=== PATIENT | female | born 1945 | race Caucasian/White ===

== ENCOUNTER 2018-05-18 08:22 | Observation (INO) | payer MEDICARE, OTHER ==
[~2018-05-18] VITALS: Ht 157.5 cm; Wt 188.6 kg
[~2018-05-18 08:22] MED LIST: ALBU8.5H5 INH; ASPI-496 PO; BENFOTIAMINE PO; CARV25TA12 PO; CHOL200052 PO; DULO60CA7 PO; INSU100C5 INJ; INSU100C5 SQ-INSULIN; INSU100V5 INJ; INSU100V5 SQ-INSULIN; LEVO50TA PO; LEVO750T26 PO; LISI-170 PO; PRED20TA PO; SIMV80TA PO; TORS5TAB4 PO
[2018-05-18] MEDS ORDERED: LAMO100T PO (09:18)
[2018-05-18] MEDS ORDERED: AMLO-150 PO (09:18)
[2018-05-18] MEDS ORDERED: PRAS10TA4 PO (09:18)
[2018-05-18] MEDS ORDERED: METO50TA82 PO (09:18)
[2018-05-18] MEDS ORDERED: OXYcodone/APAP 5/325MG TABLET PO ONE (10:00)
[2018-05-18] MEDS ORDERED: OXYcodone/APAP 5/325MG TABLET ONE (10:01)
[2018-05-18 10:27] LABS: MICROSCOPIC NOT IND
[2018-05-18 10:33] LABS: CULTURE INDICATED? NO
[2018-05-18 10:40] LABS: BASOPHILS # (AUTO) 0.13 x10^3/uL (0-0.1); BASOPHILS % (AUTO) 1 % (0-1); EOSINOPHILS # (AUTO) 0.32 x10^3/uL (0-0.4); EOSINOPHILS % (AUTO) 3 % (1-7); LYMPHOCYTES # (AUTO) 2.01 x10^3/uL (1-3.4); LYMPHOCYTES % (AUTO) 19 % (22-44); MD NO; MEAN CORPUSCULAR HEMOGLOBIN 29.8 pg (27.0-34.8); MEAN CORPUSCULAR HGB CONC 32.4 g/dL (32.4-35.8); MEAN CORPUSCULAR VOLUME 92.1 fL (80-100); MEAN PLATELET VOLUME 7.5 fL (7.4-10.4); MONOCYTES # (AUTO) 0.66 x10^3/uL (0.2-0.8); MONOCYTES % (AUTO) 6 % (2-9); NEUTROPHILS # (AUTO) 7.32 x10^3/uL (1.8-6.8); NEUTROPHILS % (AUTO) 70 % (42-75); PLATELET COUNT 288 x10^3/uL (130-400); RED BLOOD COUNT 4.54 x10^6/uL (3.82-5.3); RED CELL DISTRIBUTION WIDTH 15.7 % (9.6-15.2)
[2018-05-18 10:43] LABS: ALBUMIN 2.7 g/dL (3.4-5.0); ANION GAP 6 mmol/L (5-15); CALCIUM 8.2 mg/dL (8.5-10.1); CHLORIDE 107 mmol/L (98-107)
[2018-05-18 10:48] LABS: ALANINE AMINOTRANSFERASE 18 U/L (12-78); ALKALINE PHOSPHATASE 149 U/L (45-117); BILIRUBIN,TOTAL 0.7 mg/dL (0.2-1.0); CREATININE 1.37 mg/dL (0.55-1.02)
[2018-05-18] MEDS ORDERED: SODIUM CHLORIDE FLUSH 10ML SYR IVF PRN (13:00)
[2018-05-18] MEDS ORDERED: TEMAZEPAM 15 MG CAPSULE PO PRN (13:30)
[2018-05-18] MEDS ORDERED: GLUCAGON 1 MG IM PRN (13:30)
[2018-05-18] MEDS ORDERED: DEXTROSE 50%, 50ML SYRINGE IVPush PRN (13:30)
[2018-05-18] MEDS ORDERED: ACETAMINOPHEN 325 MG TABLET PO PRN (13:30)
[2018-05-18] MEDS ORDERED: ENALAPRILAT 1.25 MG/ML, 2ML IVPush PRN (13:30)
[2018-05-18] MEDS ORDERED: METHOCARBAMOL 500 MG TABLET PO PRN (13:30)
[2018-05-18] MEDS ORDERED: LABETALOL 5MG/ML, 20ML IVPush PRN (13:30)
[2018-05-18] MEDS ORDERED: DOCUSATE 100 MG CAPSULE PO PRN (13:30)
[2018-05-18] MEDS ORDERED: DEXTROSE 4 GM TAB.CHEW PO PRN (13:30)
[2018-05-18] MEDS ORDERED: NITROGLYCERIN 0.4 MG BOTTLE (25 TABS) SL PRN (13:30)
[2018-05-18 13:59] VITALS: BP 132/71
[2018-05-18] MEDS: HEPARIN 5,000 UNITS/ML, 1ML SQ SCH (14:42)
[2018-05-18 14:46] VITALS: BP 132/71
[2018-05-18] MEDS: INSULIN LISPRO 100 UNITS/ML, PEN SQ-INSULIN SCH ×2 (15:57→20:45)
[2018-05-18 19:46] VITALS: BP 138/75
[2018-05-18] MEDS: SODIUM CHLORIDE FLUSH 10ML SYR IVF SCH (20:44)
[2018-05-18] MEDS: METOPROLOL TARTRATE 50 MG TABLET PO SCH (20:44)
[2018-05-18] MEDS: INSULIN GLARGINE 100 UNITS/ML, PEN SQ-INSULIN SCH (20:45)
[2018-05-18] MEDS ORDERED: SIMVASTATIN 40 MG TABLET PO SCH (21:00)
[2018-05-18] MEDS: MORPHINE SULFATE 4 MG/ML, 1ML IVPush PRN (22:08)
[2018-05-19] MEDS: HEPARIN 5,000 UNITS/ML, 1ML SQ SCH ×3 (00:30→16:00)
[2018-05-19 01:42] VITALS: BP 135/62
[2018-05-19 05:23] LABS: BASOPHILS # (AUTO) 0.06 x10^3/uL (0-0.1); BASOPHILS % (AUTO) 1 % (0-1); EOSINOPHILS # (AUTO) 0.35 x10^3/uL (0-0.4); EOSINOPHILS % (AUTO) 4 % (1-7); LYMPHOCYTES # (AUTO) 2.09 x10^3/uL (1-3.4); LYMPHOCYTES % (AUTO) 23 % (22-44); MD NO; MEAN CORPUSCULAR HEMOGLOBIN 30.6 pg (27.0-34.8); MEAN CORPUSCULAR VOLUME 92.7 fL (80-100); MEAN PLATELET VOLUME 7.4 fL (7.4-10.4); MONOCYTES # (AUTO) 0.61 x10^3/uL (0.2-0.8); MONOCYTES % (AUTO) 7 % (2-9); NEUTROPHILS # (AUTO) 6.19 x10^3/uL (1.8-6.8); NEUTROPHILS % (AUTO) 67 % (42-75); PLATELET COUNT 263 x10^3/uL (130-400); RED BLOOD COUNT 4.26 x10^6/uL (3.82-5.3); RED CELL DISTRIBUTION WIDTH 15.9 % (9.6-15.2)
[2018-05-19 05:26] LABS: CALCIUM 8.2 mg/dL (8.5-10.1); CHLORIDE 110 mmol/L (98-107)
[2018-05-19 05:31] LABS: HEMOGLOBIN A1C 7.9 % (4.2-6.3)
[2018-05-19 05:32] LABS: ALANINE AMINOTRANSFERASE 22 U/L (12-78); ALBUMIN 2.4 g/dL (3.4-5.0); ALKALINE PHOSPHATASE 138 U/L (45-117); ANION GAP 4 mmol/L (5-15); BILIRUBIN,TOTAL 0.6 mg/dL (0.2-1.0); CREATININE 1.29 mg/dL (0.55-1.02); TOTAL PROTEIN 6.3 g/dL (6.4-8.2)
[2018-05-19] MEDS ORDERED: ASPIRIN 325 MG TABLET EC PO SCH (06:00)
[2018-05-19] MEDS ORDERED: LEVOTHYROXINE 100 MCG TABLET PO SCH (06:00)
[2018-05-19 07:14] VITALS: BP 95/57
[2018-05-19] MEDS: METOPROLOL TARTRATE 50 MG TABLET PO SCH (07:45)
[2018-05-19] MEDS: INSULIN GLARGINE 100 UNITS/ML, PEN SQ-INSULIN SCH (08:06)
[2018-05-19] MEDS: INSULIN LISPRO 100 UNITS/ML, PEN SQ-INSULIN SCH ×3 (08:06→16:47)
[2018-05-19] MEDS: SODIUM CHLORIDE FLUSH 10ML SYR IVF SCH (08:07)
[2018-05-19] MEDS: MORPHINE SULFATE 4 MG/ML, 1ML IVPush PRN (08:10)
[2018-05-19] MEDS ORDERED: PRASUGREL 10 MG TABLET PO SCH (09:00)
[2018-05-19] MEDS ORDERED: LISINOPRIL 20 MG TABLET PO SCH (09:00)
[2018-05-19] MEDS ORDERED: LAMOTRIGINE 100 MG TABLET PO SCH (09:00)
[2018-05-19] MEDS ORDERED: AMLODIPINE 5 MG TABLET PO SCH (09:00)
[2018-05-19 15:43] VITALS: BP 111/65
[2018-05-19] MEDS ORDERED: ACET325T14 PO (16:40)
[2018-05-19] MEDS ORDERED: METH500T7 PO (16:40)
[2018-05-19] MEDS ORDERED: FLU VAC QS18-19(4YR UP)CEL/PF 0.5ML IM-VACC ONE (18:30)
== END 2018-05-19 18:00 | disposition home or self-care (01) ==
LOC: ED 11:20 → INTOOBSV 12:57 → EDIP 12:57 → 3NW 13:55
PROVIDERS: ADMIT Family Medicine; ATTEND Family Medicine
DX: M54.5 Low back pain (principal); I25.10 Atherosclerotic heart disease of native coronary artery without angina pectoris; I13.0 Hypertensive heart and chronic kidney disease with heart failure and stage 1 through stage 4 chronic kidney disease, or unspecified chronic kidney disease; I50.32 Chronic diastolic (congestive) heart failure; E66.01 Morbid (severe) obesity due to excess calories; E78.5 Hyperlipidemia, unspecified; J44.9 Chronic obstructive pulmonary disease, unspecified; N18.3 Chronic kidney disease, stage 3 (moderate); E03.9 Hypothyroidism, unspecified; E11.22 Type 2 diabetes mellitus with diabetic chronic kidney disease; E44.0 Moderate protein-calorie malnutrition; F31.9 Bipolar disorder, unspecified; G47.33 Obstructive sleep apnea (adult) (pediatric); Z79.4 Long term (current) use of insulin; Z90.710 Acquired absence of both cervix and uterus; Z95.5 Presence of coronary angioplasty implant and graft
CPT/HCPCS: 36415; 74176; 80053; 81003; 82962; 83036; 85025; 96372; 96374; 96376; 97162; 97530; 99284; G0378; G8978; G8979; G8980; J1644; J1815

== ENCOUNTER → 2019-07-01 | Outpatient (CLI) | payer MEDICARE, OTHER ==
[~2019-07-01] MED LIST changes: +ACET325T14 PO; +AMLO-150 PO; +AMLO5TAB4 PO; +ATOR40TA78 PO; +CITA20TA9 PO; +LAMO100T PO; +LAMO100T63 PO; +METH500T7 PO; +METO50TA82 PO; +PRAS10TA4 PO
== END | disposition home or self-care (01) ==
LOC: CVU 13:11
PROVIDERS: ATTEND Internal Medicine Cardiovascular Disease
DX: I34.8 Other nonrheumatic mitral valve disorders (principal); I77.819 Aortic ectasia, unspecified site; I11.0 Hypertensive heart disease with heart failure; I50.9 Heart failure, unspecified; E78.5 Hyperlipidemia, unspecified; E11.9 Type 2 diabetes mellitus without complications
CPT/HCPCS: C8929; Q9957

== ENCOUNTER 2019-07-23 21:49 | Observation (INO) | payer MEDICARE, OTHER ==
[~2019-07-23] VITALS: Ht 157.5 cm; Wt 185.8 kg
[~2019-07-23 21:49] MED LIST changes: -LAMO100T PO; +LAMO100T8 PO
--- NOTE | 2019-07-23 22:03 | NUR ---
PT DENIES ANY CURRENT PAIN OR CONCERNS. CALL LIGHT IN REACH. ATTACHED TO MONITORS, ERP AT BEDSIDE FOR EVAL.
[2019-07-23 22:26] LABS: BASOPHILS # (AUTO) 0.11 x10^3/uL (0-0.1); BASOPHILS % (AUTO) 1 % (0-1); EOSINOPHILS # (AUTO) 0.37 x10^3/uL (0-0.4); EOSINOPHILS % (AUTO) 3 % (1-7); LYMPHOCYTES # (AUTO) 2.45 x10^3/uL (1-3.4); LYMPHOCYTES % (AUTO) 23 % (22-44); MD NO; MEAN CORPUSCULAR HEMOGLOBIN 29.4 pg (27.0-34.8); MEAN CORPUSCULAR HGB CONC 32.5 g/dL (32.4-35.8); MEAN CORPUSCULAR VOLUME 90.4 fL (80-100); MEAN PLATELET VOLUME 7.6 fL (7.4-10.4); MONOCYTES # (AUTO) 0.75 x10^3/uL (0.2-0.8); MONOCYTES % (AUTO) 7 % (2-9); NEUTROPHILS # (AUTO) 7.21 x10^3/uL (1.8-6.8); NEUTROPHILS % (AUTO) 66 % (42-75); PLATELET COUNT 296 x10^3/uL (130-400); RED BLOOD COUNT 4.53 x10^6/uL (3.82-5.3)
[2019-07-23 22:36] LABS: ALANINE AMINOTRANSFERASE 12 U/L (12-78); ALBUMIN 2.5 g/dL (3.4-5.0); ANION GAP 9 mmol/L (5-15); CALCIUM 8.6 mg/dL (8.5-10.1); CHLORIDE 110 mmol/L (98-107); CREATININE 1.41 mg/dL (0.55-1.02)
[2019-07-23 22:40] LABS: ALKALINE PHOSPHATASE 127 U/L (45-117); BILIRUBIN,TOTAL 0.4 mg/dL (0.2-1.0); TOTAL PROTEIN 6.7 g/dL (6.4-8.2); TROPONIN I < 0.015 ng/mL (0.000-0.045)
[2019-07-24] MEDS ORDERED: Prasugrel PO (00:26)
[2019-07-24] MEDS ORDERED: SPIR25TA5 PO (00:27)
[2019-07-24] MEDS ORDERED: METF500T17 PO (00:27)
[2019-07-24] MEDS ORDERED: Trulicity (00:28)
[2019-07-24] MEDS ORDERED: INSU100V8 SQ (00:29)
[2019-07-24] MEDS ORDERED: D-3 (00:30)
[2019-07-24] MEDS ORDERED: SODIUM CHLORIDE 0.9% 1,000 ML IV SCH (00:35)
[2019-07-24] MEDS ORDERED: DOCUSATE 100 MG CAPSULE PO PRN (01:00)
[2019-07-24] MEDS ORDERED: hydrALAzine 20 MG/ML, 1ML IVPush PRN (01:00)
[2019-07-24] MEDS ORDERED: ATORVASTATIN 40 MG TABLET PO SCH (01:00)
[2019-07-24] MEDS ORDERED: ONDANSETRON 2MG/ML, 2ML IVPush PRN (01:00)
[2019-07-24] MEDS ORDERED: ACETAMINOPHEN 325 MG TABLET PO PRN (01:00)
[2019-07-24] MEDS ORDERED: NITROGLYCERIN 0.4 MG BOTTLE (25 TABS) SL PRN (01:00)
[2019-07-24] MEDS ORDERED: PROMETHAZINE 25 MG/ML, 1ML IM PRN (01:00)
[2019-07-24] MEDS ORDERED: BISACODYL 10 MG SUPP PR PRN ×2 (01:00→13:30)
[2019-07-24] MEDS ORDERED: ONDANSETRON ODT 4 MG PO PRN (01:00)
[2019-07-24] MEDS ORDERED: OXYcodone IR 5MG TABLET PO PRN (01:00)
[2019-07-24] MEDS ORDERED: ATORVASTATIN 80 MG TABLET PO SCH (01:00)
[2019-07-24] MEDS ORDERED: POLYETHYLENE GLYCOL 17 GM PACKET PO PRN (01:00)
[2019-07-24] MEDS ORDERED: morphine SULFATE 10 MG/ML, 1ML IVPush PRN (01:00)
[2019-07-24 01:01] VITALS: BP 129/72
[2019-07-24 01:13] LABS: FREE T4 (FREE THYROXINE) 1.13 ng/dL (0.76-1.46)
[2019-07-24] MEDS ORDERED: CHOL100012 PO (03:19)
[2019-07-24] MEDS ORDERED: PRAS10TA4 PO (03:19)
[2019-07-24] MEDS ORDERED: DULA1.5P SQ (03:19)
[2019-07-24] MEDS: PANTOPRAZOLE 40 MG IV IVPush SCH ×2 (03:22→07:55)
[2019-07-24] MEDS: HEPARIN 5,000 UNITS/ML, 1ML SQ SCH ×2 (03:23→13:07)
[2019-07-24 03:54] LABS: TROPONIN I < 0.015 ng/mL (0.000-0.045)
[2019-07-24] MEDS ORDERED: ALBUTEROL SULFATE 2.5 MG/3 ML NPPB PRN (04:00)
[2019-07-24] MEDS ORDERED: LEVOTHYROXINE 100 MCG TABLET PO SCH (06:00)
[2019-07-24] MEDS ORDERED: ASPIRIN 325 MG TABLET EC PO SCH (06:00)
[2019-07-24 06:36] VITALS: BP 113/63
[2019-07-24 06:51] LABS: TROPONIN I < 0.015 ng/mL (0.000-0.045)
[2019-07-24] MEDS ORDERED: INSULIN LISPRO 100 UNITS/ML, PEN SQ-INSULIN SCH (07:00)
[2019-07-24] MEDS ORDERED: MAGNESIUM SULFATE PMX 2GM/50ML 50 ML IV ONE (08:30)
[2019-07-24] MEDS ORDERED: LISINOPRIL 20 MG TABLET PO SCH (09:00)
[2019-07-24] MEDS ORDERED: METOPROLOL TARTRATE 50 MG TABLET PO SCH (09:00)
[2019-07-24] MEDS ORDERED: AMLODIPINE 5 MG TABLET PO SCH (09:00)
[2019-07-24 09:30] VITALS: BP 123/62
[2019-07-24] MEDS ORDERED: PRASUGREL 10 MG TABLET PO SCH (10:00)
[2019-07-24] MEDS ORDERED: REGADENOSON 0.4 MG/5 ML SYRINGE ONE (10:42)
[2019-07-24] MEDS: INSULIN LISPRO 100 UNITS/ML, PEN SQ-INSULIN SCH ×2 (11:07→17:12)
[2019-07-24] MEDS ORDERED: SODIUM CHLORIDE 0.9% 500 ML IV ONE (11:30)
[2019-07-24 13:15] VITALS: BP 144/84
[2019-07-24] MEDS ORDERED: POLYETHYLENE GLYCOL 17 GM PACKET PO SCH (13:30)
[2019-07-24] MEDS ORDERED: LACTULOSE 3.3 GM/5 ML ORAL.SOL RC ONE (14:30)
[2019-07-24] MEDS ORDERED: GOLYTELY 4,000ML ORAL.SOL PO ONE (15:30)
[2019-07-24] MEDS ORDERED: POLY17PO5 PO (16:53)
[2019-07-24] MEDS ORDERED: ASPI-515 PO (16:53)
== END 2019-07-24 18:00 | disposition home or self-care (01) ==
LOC: ED 22:25 → EDIP 23:54 → INTOOBSV 23:54 → 5SO 07-24 00:48
PROVIDERS: ADMIT Internal Medicine; ATTEND Internal Medicine
DX: R07.9 Chest pain, unspecified (principal); E78.5 Hyperlipidemia, unspecified; I25.10 Atherosclerotic heart disease of native coronary artery without angina pectoris; J44.9 Chronic obstructive pulmonary disease, unspecified; E11.22 Type 2 diabetes mellitus with diabetic chronic kidney disease; E11.42 Type 2 diabetes mellitus with diabetic polyneuropathy; E03.9 Hypothyroidism, unspecified; E66.01 Morbid (severe) obesity due to excess calories; F31.9 Bipolar disorder, unspecified; G47.30 Sleep apnea, unspecified; I13.0 Hypertensive heart and chronic kidney disease with heart failure and stage 1 through stage 4 chronic kidney disease, or unspecified chronic kidney disease; I50.32 Chronic diastolic (congestive) heart failure; N18.3 Chronic kidney disease, stage 3 (moderate); Z68.45 Body mass index [BMI] 70 or greater, adult; Z79.4 Long term (current) use of insulin; Z95.5 Presence of coronary angioplasty implant and graft; Z90.710 Acquired absence of both cervix and uterus
CPT/HCPCS: 36415; 71045; 74018; 78452; 80053; 83036; 83735; 83880; 84439; 84443; 84484; 85025; 93005; 96365; 96366; 96372; 96375; 99284; A9502; C9113; G0378; J1644; J3475; J7030; J7040; J2785

== ENCOUNTER 2020-10-08 13:32 | Emergency (ER) | payer MEDICARE, OTHER ==
[~2020-10-08] VITALS: Ht 157.5 cm; Wt 182.0 kg
[~2020-10-08 13:32] MED LIST changes: +ASPI-963 PO; +CHOL100012 PO; +D-3; +DULA1.5P SQ; +INSU100V8 SQ; +METF500T17 PO; +METH-639 PO; -METH500T7 PO; +POLY17PO5 PO; +Prasugrel PO; +SPIR25TA5 PO; +Trulicity
--- NOTE | 2020-10-08 14:00 | NUR ---
is at the [facility] for assessment
[2020-10-08 14:32] LABS: BASOPHILS % (AUTO) 1 % (0-1); EOSINOPHILS % (AUTO) 3 % (1-7); LYMPHOCYTES % (AUTO) 26 % (22-44); MEAN CORPUSCULAR HEMOGLOBIN 29.2 pg (27.0-34.8); MEAN CORPUSCULAR HGB CONC 32.5 g/dL (32.4-35.8); MONOCYTES % (AUTO) 8 % (2-9); NEUTROPHILS % (AUTO) 63 % (42-75); PLATELET COUNT 279 x10^3/uL (130-400); RED BLOOD COUNT 4.87 x10^6/uL (3.82-5.3); RED CELL DISTRIBUTION WIDTH 16.4 % (9.6-15.2)
[2020-10-08 14:34] LABS: MD NO
--- NOTE | 2020-10-08 14:59 | NUR ---
lynn (rn) is assuming care of this pt at this time. sbar report was exchanged at the bedside.
[2020-10-08 15:20] VITALS: BP 121/53
== END 2020-10-08 15:28 | disposition home or self-care (01) ==
LOC: ED 15:22
DX: R04.0 Epistaxis (principal)
CPT/HCPCS: 36415; 85025; 99283